=== PATIENT | female | born 1955 | race Caucasian/White ===

== ENCOUNTER 2023-07-28 12:41 | Outpatient (OUT) | payer MEDICARE, MEDICAID, SELFPAY ==
--- NOTE | 2023-07-28 12:48 | CT_ITS ---
[address] [address] Patient Name: SOLEDAD ORELLANA MRN: [id number] date: 1955 Sex: F Assigned Patient Location: CT Current Patient Location: Accession/Order Number: [id number] Exam Date: 07/28/2023 13:12 Report Date: 07/29/2023 09:39 At the request of: JOCELYNN ROSE Procedure: CT lung screening low-dose EXAMINATION: CT lung screening low-dose HISTORY: History Of Tobacco Dependence Z87.891 COMPARISON: 07/01/2022 TECHNIQUE: Axial, Coronal, and Sagittal images were created without the administration of IV contrast material. Dose reduction techniques were achieved by using automated exposure control and/or adjustment of mA and/or kV according to patient size and/or use of iterative reconstruction technique. FINDINGS: LUNGS: Increased linear opacities in both lung bases likely representing atelectasis or scar. Few scattered punctate ill-defined pulmonary opacities/nodules stable from the prior exam. No new suspicious pulmonary nodule or mass PLEURA: No mass, effusion, or pneumothorax. VASCULATURE: No abnormality. ROBERT: No mass or pathologic adenopathy. MEDIASTINUM: No mass or pathologic adenopathy. CARDIAC: No enlargement or pericardial effusion. Moderate coronary atherosclerosis ossification along the posterior left ventricle suggests remote injury AORTA: No aortic aneurysm. Atherosclerosis. CHEST WALL: No mass or axillary adenopathy BONES: No bone lesion or fracture. LIMITED ABDOMEN: Hiatal hernia with multiple suture lines along the stomach. Anterior fascial clips. Left adrenal hypodense mass OTHER: Negative. CT/CT lung screening low-dose IMPRESSION: LUNG SCREENING: Lung-RADS Category 2- Benign Appearance or Behavior. Nodules with a very low likelihood of becoming a clinically active cancer due to size or lack of growth. 2. Continue annual screening with LDCT in 12 months. Electronically authenticated by: BANDAR BOATENG Date: 07/29/2023 09:39
== END 2023-07-28 12:42 | disposition home or self-care (01) ==
LOC: CT 12:41
PROVIDERS: PCP Family Medicine; Visit Provider Internal Medicine
DX: Z87.891 Personal history of nicotine dependence (principal)
CPT/HCPCS: 71271

== ENCOUNTER 2024-09-26 11:39 | Outpatient (OUT) | payer MEDICARE, MEDICAID, SELFPAY ==
[2024-09-26 12:37] LABS: Anion Gap 16.3; BUN Creatinine Ratio 28.2; Calcium 8.8 mg/dL (8.5-10.1); Carbon Dioxide 27.6 mmol/L (21.0-32.0); Chloride 101 mmol/L (98-107); Estimated GFR (African America 29 (>=60 mL/min/1.73m^2); Estimated GFR (Non-African Ame 24 (>=60 mL/min/1.73m^2); Glucose 113 mg/dL (74-106); Potassium 3.9 mmol/L (3.5-5.1); Sodium 141 mmol/L (136-145)
== END 2024-09-26 11:40 | disposition home or self-care (01) ==
PROVIDERS: PCP Family Medicine; Visit Provider Family Medicine
DX: I50.9 Heart failure, unspecified (principal); E87.6 Hypokalemia
CPT/HCPCS: 36415; 80048; 83880

== ENCOUNTER 2025-04-22 12:13 | Outpatient (OUT) | payer MEDICARE, SELFPAY ==
--- OUTSIDE RECORDS SUMMARY | 2025-02-27 10:31 | XMS_ITS ---
Author Organization [facility] in [place] Address [address] [place] [address] Care Team Providers Care Publication Distributor Name Role Phone Jona Parker DO Primary Care Provider Unavailab debo Migue Rizzo Unavailable [phone] REASON FOR VISIT Trelegy 200 Medications Medication SIG (Take, Route, Frequency, Duration) Notes Start Date End Date Status Trelegy Ellipta 200-62.5-25 MCG/ACT 1 puff Inhalation QD for 90 days Rinse after use 12/31/2024 Active Encounters Encounter Location Date Provider Diagnosis Pulmonary Medicine [place] [address] [place] [address] 02/27/2025 Migue Kentrell Moderate persistent asthma, uncomplicated J45.40 Assessments Encounter Date Diagnosis (ICD Code) Assessment Notes Treatment Notes Treatment Clinical Notes Section Notes 02/27/2025 Moderate persistent asthma, uncomplicated (ICD-10 - J45.40) Plan Of Treatment Medication Medication Name Sig Start Date Stop Date Notes Trelegy Ellipta 200-62.5-25 MCG/ACT 1 puff Inhalation QD for 90 days 12/31/2024 Next Appt Details Provider Name:Migue Rizzo, 04/29/2025 11:00:00 AM, [address] [place], [address], Progress Notes * Anila ORELLANA ADOB:1955 (69 yo F)Acc No.[id number]:02/27/2025 Patient: Ya Anila GUTHRIE :1955 A ge:69 Y S ex:Female Address:[address] [place], [address] * Refills Refill Trelegy Ellipta Aerosol Powder Breath Activated, 200-62.5-25 MCG/ACT, Inhalation, 3 each, 1 puff, QD, 90 days, Refills=4 Subjective: * Chief Complaints: * T relegy 200 * Medical History: * Surgical History: * Hospitalization/Major Diagno stic Procedure: * Medications: Objective: * Vitals: * Physical Examination: Assessment: * Assessment: 1. M oderate persistent asthma, uncomplicated - J45.40 (Primary) Plan: * Treatment: * Procedure Codes: * true * Date: Generated for Chloé berman/Patricio/eTransmitting on: 0 04/22/2025 12:15 PM EDT
--- OUTSIDE RECORDS SUMMARY | 2025-03-24 09:46 | XMS_ITS ---
Author Organization [facility] [place] in [place] Address [address] [place] [address] Care Team Providers Care Toy Packer Name Role Phone Jona Parker DO Primary Care Provider Unavailab Migue De Unavailable [phone] REASON FOR VISIT PFT/LDCT Encounters Encounter Location Date Provider Diagnosis Pulmonary Medicine [place] [address] [place] [address] 03/24/2025 Migue Rizzo Plan Of Treatment Next Appt Details Provider Name:Migue Rizzo, 04/29/2025 11:00:00 AM, [address] [place], [address], Progress Notes * Anila ORELLANA ADOB:1955 (69 yo F)Acc No.[id number]:03/24/2025 Patient: Ya GUTHRIE Anila Suero :1955 A ge:69 Y S ex:Female Address:[facility] [place], [address] * true * Date: Generated for Printi ng/Fachrissyg/eTransmitting on: 0 04/22/2025 12:16 PM EDT
--- OUTSIDE RECORDS SUMMARY | 2025-04-02 06:00 | XMS_ITS ---
Author Organization [facility] in [place] Address [address] [place] [address] Care Team Providers Care Collaborative Physician Name Role Phone Jona Parker DO Primary Care Provider UnavailMigue Zabala Unavailable [phone] Allergies Allergen (clinical drug ingredient) Drug/Non Drug Allergy documented on EMR Reaction Allergy Type Onset Date Status Non-steroidal anti-inflammatory agent (FN) NSAIDs renal failure Drug Allergy Active REASON FOR VISIT 6w F/U - Asthma Medications Medication SIG (Take, Route, Frequency, Duration) Notes Start Date End Date Status Levalbuterol Tartrate 45 MCG/ACT Inhalation for 16 Days Activ e Lisinopril 20 MG 1 tablet Orally Once a day Active Trelegy Ellipta 200-62.5-25 MCG/ACT 1 puff Inhalation QD for 90 days Rinse after use Active Acetaminophen-Codeine 300-30 MG Oral for 7 Days Not-Taking Combivent Respimat 20-100 MCG/ACT Inhalation for 30 Days Activ e Lasix 20 MG 1 tablet Orally Once a day Active Social History Tobacco Use: Social History Observation Description Date Details (start date - stop date) Former Smoker NA - NA Tobacco Control (Standard) Question Answer Notes Tobacco use: Former smoker How long has it been since you last smoked? 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 (Z79.51) Active confirmed Problem Respiratory tract infection (844226578) Recurrent respiratory infection (J98.8) Active confirmed Vital Signs Weight 216.2 lbs 04/02/2025 Height 60 in 04/02/2025 Blood pressure systolic 166 mm Hg 04/02/20 25 Blood pressure diastolic 97 mm Hg 025 Temperature 96.8 degrees Fahrenheit 04/02/20 25 Heart Rate 99 /min 04/02/2025 Respiratory Rate 18 /min 04/02/2025 BMI 42.22 kg/m2 04/02/2025 Oximetry 95 % 04/02/2025 RA Activity/Resting Encounters Encounter Location Date Provider Diagnosis Pulmonary Medicine [place] [address] [place] [address] 04/02/2025 Migue Rizzo Moderate persistent asthma, uncomplicated J45.40 ; Recurrent respiratory infection J98.8 ; Chronic respiratory failure with hypoxia J96.11 ; Multiple pulmonary nodules R91.8 ; TORSTEN (obstructive sleep apnea) G47.33 ; History of tobacco abuse Z87.891 and 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 Patient unable to get PFT done d/t illness and prednisone use. She just stopped prednisone late last week. Breath sounds are coarse with expiratory wheezes despite recent prednisone use and daily Trelegy 200. Patient was instructed to schedule the PFT in 2-3 weeks. Additionally, with recurrent exacerbations and presumptive pneumonia, she needs further w/up. Ordering labs for asthma mimics (ABPA, ANCA) and difficult to treat asthma (IgE, eosinophils) - prior eosinophils were not extremely elevated and may be depressed by steroids. She also needs w/up for possible immunodeficiency. F/U 4 weeks to (hopefully) review testing. May require biologic therapy (? Dupixent if prednisone-depende nt) 04/02/2025 Recurrent respiratory infection (ICD-10 - J98.8) 2 episodes of pneumonia since end of December, confirmed via CXR per patient (though I don't have those records). Ordering testing to evaluate further (e.g. immunoglobulins, complement alt. tank, S. pneumo Ab). AAT screening was previously done - she has normal genotype MM. 04/02/2025 Chronic respiratory failure with hypoxia (ICD-10 - J96.11) SpO2 remains low on arrival @ 87% on room air. Patient was told to use O2 with ambulation last visit - she still qualifies for supplemental O2 now. She was instructed to be compliant with O2 with activity. 04/02/2025 Multiple pulmonary nodules (ICD-10 - R91.8) History of pulmonary nodules. Last LDCT 07/28/2023 - no change from 07/01/2022. She needs LDCT done, but waiting until she recovers from presumptive pneumonia - LDCT possibly later in March. 04/02/2025 TORSTEN (obstructive sleep apnea) (ICD-10 - G47.33) Patient has mild TORSTEN based on PSG 03/31/2021 with AHI of 6. Does not want to use PAP therapy. 04/02/2025 History of tobacco abuse (ICD-10 - Z87.891) 1/2ppd x 48 years, quit 04/2022. Patient has not restarted smoking. She was congratulated on her success. LDCT was due 07/2024; patient voiced agreement to restart the LDCT screening program. 04/02/2025 [facility] (current) use of inhaled steroids (ICD-10 - Z79.51) Patient was counseled to rinse & gargle with water after inhaled corticosteroid use. Plan Of Treatment Medication Medication Name Sig Start Date Stop Date Notes Trelegy Ellipta 200-62.5-25 MCG/ACT 1 puff Inhalation QD for 90 days Treatment Notes Assessment Notes Moderate persistent asthma, uncomplicate d Change from Breo to Trelegy 200 has improved symptom control, yet she has had 2 exacerbations since December - though she states attributed to pneumonia , regardless, pneumonia contributed to the asthma exacerbation. Patient unable to get PFT done d/t illness and prednisone use. She just stopped prednisone late last week. Breath sounds are coarse with expiratory wheezes despite recent prednisone use and daily Trelegy 200. Patient was instructed to schedule the PFT in 2-3 weeks. Additionally, with recurrent exacerbations and presumptive pneumonia, she needs further w/up. Ordering labs for asthma mimics (ABPA, ANCA) and difficult to treat asthma (IgE, eosinophils) - prior eosinophils were not extremely elevated and may be depressed by steroids. She also needs w/up for possible immunodeficiency. F/U 4 weeks to (hopefully) review testing. May require biologic therapy (? Dupixent if prednisone-dependent) Recurrent respiratory infection 2 episodes of pneumonia since end december, confirmed via CXR per patient (though I don't have those records). Ordering testing to evaluate further (e.g. immunoglobulins, complement alt. pathyway, S. pneumo Ab). AAT screening was previously done - she has normal genotype MM. Chronic respiratory failure with hypoxia SpO2 remains low on arrival @ 87% on room air. Patient was told to use O2 with ambulation last visit - she still qualifies for supplemental O2 now. She was instructed to be compliant with O2 with activity. Multiple pulmonary nodules History of pulmonary nodules. Last LDCT 07/28/2023 - no change from 07/01/2022. She needs LDCT done, but waiting until she recovers from presumptive pneumonia - LDCT possibly later in March. TORSTEN (obstructive sleep apnea) Patient has mild TORSTEN based on PSG 03/31/2021 with AHI of 6. Does not want to use PAP therapy. History of tobacco abuse 1/2ppd x 48 years, quit 04/2022. Patient has not restarted smoking. She was congratulated on her success. LDCT was due 07/2024; patient voiced agreement to restart the LDCT screening program. [facility] (current) use of i nhaled steroids Patient was counseled to rinse & gargle with water after inhaled corticosteroid use. Pending Test Test Name Order Date ANCA (ANTINEUTROPHIL CYTOPLASMIC AB SCRE EN) 04/02/2025 ASPERGILLUS ABS (FLAVUS,FUMIGATUS, NIGER ) QUAL 04/02/2025 IGA, IMMUNOGLOBULIN (TOTAL) 04/02/2025 IGE, IMMUNOGLOBULIN (TOTAL) 04/02/2025 IGG, IMMUNOGLOBULIN (TOTAL) 04/02/2025 IGG SUBCLASSES (1,2,3 and 4) 04/02/2025 IGM, IMMUNOGLOBULIN (TOTAL) 04/02/2025 COMPLEMENT, ALT PATH, FUNCTION CBC W/AUTO DIFF 04/02/2025 STREP PNEUMONIAE ANTIBODY SEROTYPES 05/0 05/2025 Next Appt Details Follow Up: 4 Weeks, Reason: Asthma - PFT, LDCT, Labs Provider Name:Migue Rizzo, 04/29/2025 11:00:00 AM, [address] [place], [address], Procedure Notes * Category Sub-Category Detail Notes PFT Data: PFT 07/01/2022 - T BH-FEV1/FVC: 69%-FEV1: 56%-FVC: 62%-XTQ72-37%: 39%-Bronchodilator response: Positive-RV: 134%-T%-DLCO: 94%-Flow-volume loop: Moderate obstruction Alpha-1 Antitrypsin Screening Date: 06/14/2021 Genotype: M/M Progress Notes * Anila ORELLANA ADOB:1955 (69 yo F)Acc No.[id number]:04/02/2025 Follow Up Patient: Anila RM Provider: Pao Rizzo DO :1955 A ge:69 Y S ex:Female Date:04/02/2025 Address:[address] [place], [place] [address] Pcp:Jona Parker, DO Check In:09:54 AM ESTCheck O ut:10:21 AM EST Subjective: * Chief Complaints: * 6 w F/U - Asthma * HPI: G eneral: Patient was last seen 01/20/2025. Breo was changed to Trelegy at that time, and PFT & LDCT were ordered. She states the change from Breo to Trelegy has been effective with more relief of dyspnea and coughing. However, she had to cancel the testing twice d/t 2 episodes of pneumonia - I asked if they were diagnosed clinically, but she stated both times they were confirmed by CXR - this office was never sent a copy of the UC visits nor CXR studies. She completed her antibiotics and prednisone from her second bout late last week.? Today, she states she is feeling okay. Continues to use Trelegy 200 with benefit, not using rescue inhaler often. A sked her about the pneumonias - she states she has pneumonia at least once a year around this time. Never had immunology w/up. Denies regurgitation, choking, or aspiration. MA Intake Comments:. Patient presents for a follow up for Asthma. Patient wears 2L O2 at HS. DME:[employer]. Patient was scheduled twice for her PFT & LDCT due to having Bronchitis and being on ABX/Steroids. Patient states she is not currently on ABX or Steroids. Patient denies any Pulmonary complaints today. Patient is scheduled to see [facility] but is unsure of her appointment date and time. Patient denies any hospitalizations or ER visits since her last visit. * ROS: G eneral/Constitutional: Fever or sweats d enies. C hange of appetite d enies. C hills d enies. W eight Change d enies. H EENT: Dry mouth d enies. S ore throat d enies. O ral Ulcers d enies. P ost Nasal Drip D enies. C ongestion D enies. H oarseness?Denies. C ardiovascular: Tachycardia d enies. E sarah D enies. C hest pain d enies. P alpitations d enies. R espiratory: Pleurisy D enies. D yspnea w ith exertion. C ough d enies. H emoptysis d enies. W heezing d enies. G astrointestinal: Acid Reflux/GERD/Heartburn d enies. A spiration D enies. D ysphagia d enies. M usculoskeletal: Arthralgias/joint pain D enies. S kin: Easy bruising d enies. N eurologic: Seizures d enies. T remor d enies. H ematology: Abnormal Bleeding d enies. P sychiatric: Anxiety d enies. 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 * Social History: T obacco Use: T obacco Control (Standard) T obacco use: F ormer smoker H ow long has it been since you last smoked??1-5 years A dditional Findings: Tobacco non-user E x-light cigarette smoker (1-9/day) LM: Additional Tobacco Questions N umber of Years Pt Smoked: 4 8 N umber of Packs per Day: . 5 When did you stop smokin04/2022. M iscellaneous: O ccupation O ccupation: W orks at home Homemaker Pets: cats. D rugs/Alcohol: D rugs H ave you used drugs other than those for medical reasons in the past 12 months? N o D oes the Patient have a History of Drug Abuse in the Past? N o Caffeine I ntake: n one Do you drink alcohol?: No. Do you smoke marijuana?: Denies. * Medications: T akingCombivent Respimat(Ipratropium-Albuterol) 20-100 MCG/ACT Aerosol Solution Inhalation Lasix(Furosemide) 20 MG Tablet 1 tablet Orally Once a day Levalbuterol Tartrate 45 MCG/ACT Aerosol Inhalation Lisinopril 20 MG Tablet 1 tablet Orally Once a day Trelegy Ellipta(Jssqijnzupl-Hilrghdqo-Vlikdh) 200-62.5-25 MCG/ACT Aerosol Powder Breath Activated 1 puff Inhalation QD Rinse after useTaking Combivent Respimat(Ipratropium-Albuterol) 20-100 MCG/ACT Aerosol Solution Inhalation Taking Lasix(Furosemide) 20 MG Tablet 1 tablet Orally Once a day Taking Levalbuterol Tartrate 45 MCG/ACT Aerosol Inhalation Taking Lisinopril 20 MG Tablet 1 tablet Orally Once a day Taking Trelegy Ellipta(Mmlzvkyzpnu-Upheqzfrf-Unbqzn) 200-62.5-25 MCG/ACT Aerosol Powder Breath Activated 1 puff Inhalation QD Rinse after useNot-Taking/PRNAcetaminophen-Codeine 300-30 MG Tablet Oral Medication List reviewed and reconciled with the patientNot-Taking/PRN Acetaminophen-Codeine 300-30 MG Tablet Oral Medication List reviewed and reconciled with the patient * Allergies: N SAIDs: renal failure - Allergyno[Allergies Verified] Objective: * Vitals: W t:216.2lbs, Ht: 60 in, BP:sittin/97mm Hg, Temp:Forehead:96.8F, HR: 101 /min,99/min, RR:18/min, BMI:42.22Index, Oxygen sat %: Room Air:87 %,Room Air:95%, Ht-cm: 152.4 cm, Wt-k.07 kg. RA Activity/Resting. * Examination: E xam: GENERAL APPEARANCE: D oes not appear acutely ill. Skin N ormal. Mouth P ink and moist. No candidiasis. Oropharynx M allampati Class III. Trachea M idline. Chest N ormal. Respiratory Normal M ovements, E ffort N ormal. Auscultation B reath sounds are coarse with expiratory wheezes. Cardiac R egular rate & rhythm. Gastrointestinal N ormal. Vascular N o edema. Musculoskeletal N ormal posture. Neurological F ocal, intact. Psychiatric A lert and oriented x3. Mentation/Cognition N ormal. Assessment: * Assessment: 1. M oderate persistent asthma, uncomplicated - J45.40 (Primary) 2 . R ecurrent respiratory infection - J98.8 3 . C hronic respiratory failure with hypoxia - J96.11 4 . M ultiple pulmonary nodules - R91.8 5 . O SA (obstructive sleep apnea) - G47.33 6 . H istory of tobacco abuse - Z87.891 ? 7 . L ronaldo term (current) use of inhaled steroids - Z79.51 Plan: * Treatment: 2. R ecurrent respiratory infection L AB: IGA, IMMUNOGLOBULIN (TOTAL) L AB: IGE, IMMUNOGLOBULIN (TOTAL) L AB: IGG, IMMUNOGLOBULIN (TOTAL) L AB: IGG SUBCLASSES (1,2,3 and 4) L AB: IGM, IMMUNOGLOBULIN (TOTAL) L AB: COMPLEMENT, ALT PATH, FUNCTION L AB: CBC W/AUTO DIFF L AB: STREP PNEUMONIAE ANTIBODY SEROTYPES Notes: 2 episodes of pneumonia since end of December, confirmed via CXR per patient (though I don't have those records). Ordering testing to evaluate further (e.g. immunoglobulins, complement alt. pathyway, S. pneumo Ab). AAT screening was previously done - she has normal genotype MM. 3. C hronic respiratory failure with hypoxia Notes: SpO2 remains low on arrival @ 87% on room air. Patient was told to use O2 with ambulation last visit - she still qualifies for supplemental O2 now. She was instructed to be compliant with O2 with activity. 4. M ultiple pulmonary nodules Notes: History of pulmonary nodules. Last LDCT 07/28/2023 - no change from 07/01/2022. She needs LDCT done, but waiting until she recovers from presumptive pneumonia - LDCT possibly later in March. 5. O SA (obstructive sleep apnea) Notes: Patient has mild TORSTEN based on PSG 03/31/2021 with AHI of 6. Does not want to use PAP therapy. ? 6. H istory of tobacco abuse Notes: 1/2ppd x 48 years, quit 04/2022. Patient has not restarted smoking. She was congratulated on her success. LDCT was due 07/2024; patient voiced agreement to restart the LDCT screening program. 7. L ronaldo term (current) use of inhaled steroids Notes: Patient was counseled to rinse & gargle with water after inhaled corticosteroid use. * Procedures: A lpha-1 Antitrypsin: Screening Date: 0 06/14/2021. Genotype: M /M. P FT: Data: PFT 07/01/2022 - [facility] -FEV1/FVC: 69% -FEV1: 56% -FVC: 62% -LZU90-33%: 39% -Bronchodilator response: Positive -RV: 134% -T% -DLCO: 94% -Flow-volume loop: Moderate obstruction. * Procedure Codes: * Preventive Medicine: COVID Vaccination: H as patient had COVID Vaccination? COVID Vaccination Y es 09/10/2021 Immunization Status: P neumovacc p neumovacc 23-08/27/2018. I nfluenza 0 08/13/2024. Screenings/Counseling: F ALL RISK SCREENING Fall Risk Assessment: N o falls in the past year Are you afraid of falling? N o T OBACCO ACTION PLAN Patient counselled on the dangers of tobacco use and urged to quit. 0 04/02/2025 Former Cessation counseling provided 0 04/02/2025 Former B VT ACTION PLAN Above Normal BMI Follow-up D ietary management education, guidance, and counseling * Follow Up: 4 Weeks (Reason: Asthma - PFT, LDCT, Labs) * * Sign off status: Completed Visit Status: C HK (Check Out) true * Provider: Pao Rizzo DO Date: 0 04/02/2025 Generated for Chloé berman/Patricio/Jonoitting on: 0 04/22/2025 12:16 PM EDT History and Physical Notes * HPI (History of Present Illness) Category Sub-Category Detail Notes Category Not es General Patient present s for a follow up for Asthma. Patient wears 2L O2 at HS. DME:Brian. Patient was scheduled twice for her PFT & LDCT due to having Bronchitis and being on ABX/Steroids. Patient states she is not currently on ABX or Steroids. Patient denies any Pulmonary complaints today. Patient is scheduled to see [facility] but is unsure of her appointment date and time. Patient denies any hospitalizations or ER visits since her last visit. Examination Category Sub-Category Detail Notes Category Not es Exam GENERAL APPEARANCE: Does not appear acute ly ill Skin Normal Mouth [place] and moist. No c andidiasis Trachea Midline Chest Normal Respiratory Normal Movements, Ef fort Normal Auscultation Breath sounds are co arse with expiratory wheezes Cardiac Regular rate & rhyth m Gastrointestinal Normal Vascular No edema Musculoskeletal Normal posture Neurological Focal, intact Psychiatric Alert and oriented x 3 Mentation/Cognition Normal Oropharynx Mallampati Class III
--- OUTSIDE RECORDS SUMMARY | 2025-04-17 23:02 | XMS_ITS | Continuity of Care Document ---
Author Organization [facility] Address [address] [place] [address] Phone Care Team Providers Care Commercial Litigation Associate Name Role Phone Jona Parker DO Primary Care Provider Marcus Marquez MD Attending Provider Care Teams Patient Care Team Team Status: Active Member Role Status Nabila Parker DO Primary Care Provider Active Visit Care Team Team Status: Inactive Member Role Status Nabila Parker DO Primary Care Provider Active S tart: April 11, 2025 End: April 11, 2025 Marcus Marquez MD Attending Provider Activ e Start: April 11, 2025 End: April 11, 2025 Visit Care Team Team Status: Inactive Member Role Status Nabila Parker DO Primary Care Provider Active S tart: April 11, 2025 End: April 11, 2025 Marcus Marquez MD Attending Provider Activ e Start: April 11, 2025 End: April 11, 2025 Chief Complaint and Reason for Visit Reason for Visit Admit Date Diastolic dysfunction April 11, 2025 10: 16am Essential (primary) hypertension March 10:16am Hypertensive heart disease May 16th, 202 5 10:16am RVF (right ventricular failure) March 10:16am Allergies, Adverse Reactions, Alerts Allergen Type Severity Reaction Last Updated Verified Status ibuprofen Allergy Unknown Unknown Reaction March 10:25am Yes Active ketorolac Allergy Unknown Gastrointestinal Upset Ma y 2024 10:25am Yes Active nalbuphine Allergy Unknown Unknown Reaction March 10:25am Yes Active NSAIDS (Non-Steroidal Anti-Inflamma Allergy Unknown Gastrointestinal Upset April 11, 2025 10:25am Yes Active venlafaxine Allergy Unknown Rash April 11, 2025 10:25am Yes Active Social History Smoking Status Status Start Date End Date Date of Observa tion Ex-smoker (finding) March 11:23am Observation Status Observation Response Date of Response Patient Sex Female April 12, 2025 1 2:03am Assigned Sex Female 1955 Family History Relationship Condition Age at Onset Recorded Date/T beau father Unknown mother Unknown Problems Active Problems Medical Problem Onset Date Status correction (current) use of bisphosphonates Active Graves disease Active Vitamin B12 deficiency Active Depression Active Hyperlipidemia Active Diastolic dysfunction Active Essential (primary) hypertension Active Iron deficiency anemia Active Chronic neck pain Active COPD (chronic obstructive pulmonary disease) Active Cervical pain Active Hypertensive heart disease Activ e Medications Medication Status Dose Units Route Directions Qty Days St art Date Stop Date End Date Instructions Tizanidine 4 mg tablet Discont inued 4 MG PO Every 8 hours as needed for muscle spasm February 26, 2024 2:00pm February 26, 2024 2:03p m Tizanidine 4 mg tablet Discont inued 4 MG PO Every 8 hours as needed for muscle spasm February 26, 2024 2:01pm May 21, 2024 12:55 pm Lisinopril-H ydrochloroth iazide 20-25 mg tablet Discont inued 0 .ROUTE .COMPLEX March 04, 2024 1:56pm May 21, 2024 12:55 pm take 1 tablet by mouth once daily Sertraline 50 mg tablet Discont inued 0 .ROUTE .COMPLEX March 04, 2024 1:58pm June 06, 2024 10:38 am take 1 tablet by mouth once daily Potassium Chloride 10 mEq tablet,ER particles/cr ystals Discont inued 0 .ROUTE .COMPLEX March 11, 2024 10:01a m June 10, 2024 5:02p m take 1 tablet by mouth once daily with food Lisinopril-H ydrochloroth iazide 20-25 mg tablet Discont inued 0 .ROUTE .COMPLEX May 21, 2024 12:55p m Novem hedy 2023 9:13a m take 1 tablet by mouth once daily Tizanidine 4 mg tablet Discont inued 4 MG PO Every 8 hours as needed for muscle spasm May 21, 2024 12:55p m Septe mber 2023 2:50p m Sertraline 50 mg tablet Discont inued 0 .ROUTE .COMPLEX June 06, 2024 10:38a m Augus t 2023 10:19 am take 1 tablet by mouth once daily Potassium Chloride 10 mEq tablet,ER particles/cr ystals Discont inued 0 .ROUTE .COMPLEX June 10, 2024 5:01pm Octob er 2023 11:42 am take 1 tablet by mouth once daily with food Atenolol 50 mg tablet Discont inued 0 .ROUTE .COMPLEX June 10, 2024 5:02pm Septe mber 2023 2:30p m take 1 tablet by mouth once daily Sertraline 50 mg tablet Discont inued 0 .ROUTE .COMPLEX July 08, 2024 10:19a m Octob er 2023 10:32 am take 1 tablet by mouth once daily Tizanidine 4 mg tablet Discont inued 4 MG PO Every 8 hours as needed for muscle spasm Julem hedy 2023 2:50pm Octob er 2023 11:42 am Lisinopril 20 mg tablet Discont inued 20 MG PO Daily 30 Novemb er 2023 12:00a m Novem hedy 2023 10:48 am Lisinopril 20 mg tablet Discont inued 20 MG PO Daily 30 Novemb er 2023 10:48a m Novem hedy 2023 10:41 am Tizanidine 4 mg tablet Discont inued 4 MG PO Every 8 hours as needed for muscle spasm 60 Novemb er 2023 2:38pm Novem hedy 2023 2:38p m Tizanidine 4 mg tablet Discont inued 4 MG PO Every 8 hours as needed for muscle spasm 60 Novemb er 2023 2:38pm Decem hedy 2023 1:32p m Lisinopril 20 mg tablet Discont inued 0 .ROUTE .COMPLEX 30 Novemb er 2023 10:40a m Decem hedy 2023 10:10 am TAKE 1 TABLET BY MOUTH DAILY Tizanidine 4 mg tablet Discont inued 4 MG PO Every 8 hours as needed for muscle spasm 60 Decemb er 2023 1:32pm Janua ry 2024 10:50 am Lisinopril 20 mg tablet Discont inued 0 .ROUTE .COMPLEX 30 Decemb er 2023 10:10a m February 10, 2025 11:33 am TAKE 1 TABLET BY MOUTH DAILY Furosemide (Lasix) 20 mg tablet Discont inued 20 MG PO Daily 2024 10:50a m February 10, 2025 11:33 am Tizanidine 4 mg tablet Discont inued 4 MG PO Every 8 hours as needed for muscle spasm 60 y 2024 10:50a m Febru aicha 2024 3:38p m Tizanidine 4 mg tablet Discont inued 4 MG PO Every 8 hours as needed for muscle spasm 60 Februa ry 2024 3:38pm February 10, 2025 11:33 am Furosemide (Lasix) 20 mg tablet Discont inued 20 MG PO Daily February 10, 2025 11:32a m February 20, 2025 9:40a m Lisinopril 20 mg tablet Active 0 .ROUTE .COMPLEX February 10, 2025 11:32a m TAKE 1 TABLET BY MOUTH DAILY Tizanidine 4 mg tablet Discont inued 4 MG PO Every 8 hours as needed for muscle spasm 60 February 10, 2025 11:32a m March 31, 2025 4:05p m Furosemide 20 mg tablet Discont inued 0 .ROUTE .COMPLEX February 20, 2025 9:40am April 04, 2025 8:21a m TAKE 1 TABLET BY MOUTH DAILY Tizanidine 4 mg tablet Discont inued 4 MG PO Every 8 hours as needed for muscle spasm 60 March 31, 2025 4:04pm April 11, 2025 10:27 am Furosemide 20 mg tablet Active 20 MG PO Twice daily 60 30 April 04, 2025 8:21am Doxycycline Hyclate 100 mg capsule Discont inued 100 MG PO Twice daily April 02, 2018 12:00a m May 04, 2018 11:53 am Cephalexin 500 mg capsule Discont inued 500 MG PO Twice daily April 02, 2018 12:00a m May 04, 2018 11:52 am Oxycodone-Ac etaminophen (Percocet) 5-325 mg tablet Discont inued 1 TAB PO EVERY 4-6 HOURS as needed for pain April 02, 2018 May 04, 2018 11:53 am Azithromycin (Zithromax Z-Chalino) 250 mg tablet Discont inued 1 dose pk PO as directed on dose pack June 02, 2018 12:00a m [facility] 2017 3:16p m take 2 tablets (500 mg) today (day 1), then 1 tablet (250 mg) for 4 days (days 2-5) Oxycodone-Ac etaminophen (Percocet) 5-325 mg tablet Discont inued 1 TAB PO EVERY 4-6 HOURS as needed for pain June 02, 2018 t 2017 3:16p m Benzonatate (Tessalon Perles) 100 mg capsule Discont inued 200 MG PO Three times daily as needed for cough June 02, 2018 12:00a [facility] 3:16[facility] Prednisone 50 mg tablet Discont inued 50 MG PO Daily 4 June 02, 2018 12:00a m Jun 2017 3:16p m administer with food or milk Bupropion Hcl (Wellbutrin Xl) 300 mg Tablet Extended Release 24 Hr Discont inued 300 MG PO daily June 29, 2018 12:00a m [facility] 2023 1:53p m Prednisone 5 mg tablets,dose pack Discont inued 1 dose pk PO per package directions June 29, 2018 12:00a m [facility] 2023 1:54p m Tizanidine 4 mg tablet Discont inued 4 MG PO Four times daily as needed for Cramps Jul 2016 12:00a m February 26, 2024 2:00p m Sucralfate 1 gram tablet Discont inued TABLET 2016 12:00a m [facility] 2016 7:26p m Oxycodone-Ac etaminophen 5-325 mg tablet Discont inued TABLET 2016 12:00a m [facility] 2016 7:27p m Pantoprazole 40 mg tablet,delay ed release (DR/EC) Discont inued 40 MG PO Daily 2016 12:00a m February 02, 2018 5:42p m Lisinopril-H ydrochloroth iazide 20-25 mg tablet Discont inued 1 TAB PO Daily 2016 12:00a m March 04, 2024 1:57p m Ondansetron 4 mg tablet,disin tegrating Discont inued 4 MG TRANSL INGU Q8H as needed for Nausea 2016 12:00a m March 09, 2018 5:02p m Atenolol 50 mg tablet Discont inued 50 MG PO Daily 2016 12:00a m [facility] 2023 1:53p m Sucralfate (Carafate) 1 gram tablet Discont inued 1 GM PO Q6H 112 28 Jul 2016 12:00a m Octob er 2016 12:00 am Octob er 2016 12:03 am Sucralfate (Carafate) 1 gram Tablet Discont inued 1 GM PO Four times daily Octobe r 2016 12:00a m [facility] 2023 1:55p m Sertraline 50 mg tablet Discont inued 50 MG PO Daily February 02, 2018 1:00am March 09, 2018 5:02p m Hydrocodone- Acetaminophe n (Falun) 5-325 mg Tablet Discont inued 1 TAB PO EVERY 4-6 HOURS as needed for Pain 7 February 02, 2018 March 09, 2018 5:02p m Butalbital-A cetaminophen -Caff 50-325-40 mg tablet Discont inued 1 TAB PO Twice daily as needed for Pain March 09, 2018 12:00a m June 02, 2018 6:16p m Levofloxacin 500 mg tablet Discont inued 500 MG PO Daily March 09, 2018 12:00a m April 02, 2018 11:26 am Albuterol Sulfate (Ventolin Hfa) 90 mcg/actuatio n HFA aerosol inhaler Discont inued 1 PUFF INHALA TION Q4H as needed for Wheezing March 09, 2018 12:00a m April 02, 2018 11:26 am Hydrocodone- Acetaminophe n (Falun) 5-325 mg tablet Discont inued 1 - 2 TAB PO EVERY 4-6 HOURS as needed for pain March 09, 2018 April 02, 2018 11:26 am Pantoprazole 40 mg tablet,delay ed release (DR/EC) Discont inued 40 MG PO Twice daily May 04, 2018 12:00a m [facility] 2023 1:54p m Oxycodone-Ac etaminophen (Percocet) 5-325 mg tablet Discont inued 1 TAB PO Q6H as needed for pain 6 2 May 04, 2018 May 05, 2018 12:00 am May 06, 2018 12:02 am Oxycodone-Ac etaminophen 5-325 mg tablet Discont inued 1 TAB PO EVERY 4-6 HOURS as needed for pain 6 May 14, 2018 June 02, 2018 6:16p m Alendronate (Fosamax) 70 mg Tablet Discont inued 1 TAB PO EVERY 2 WEEKS Augobe r 2018 12:00a m June 10, 2024 5:03p m Orphenadrine Citrate 100 mg Tablet Extended Release Discont inued 1 TAB PO Q12H as needed for Pain Octobe r 2018 12:00a m [facility] 2023 1:54p m Methimazole (Tapazole) 5 mg Tablet Discont inued 1 TAB PO Daily Octobe r 2018 12:00a m [facility] 1:54p m Methimazole (Tapazole) 5 mg Tablet Discont inued TABLET Octobe r 2018 12:00a m [facility] 10:21 am Vitamin F02-Gjska Acid 1,000-400 mcg Lozenge Active 1 TAB SUBLIN GUAL Daily Octobe r 2018 12:00a m Calcium Carbonate-Vi tamin D3 (Calcium 500 + D) 500 mg(1,250mg) -200 unit Tablet Discont inued 1 TAB PO Daily Dece er 2018 1:00am April 11, 2025 10:27 am Sertraline 50 mg tablet Discont inued 50 MG PO Daily March 04, 2024 12:00a m March 04, 2024 1:58p m Potassium Chloride 10 mEq tablet,ER particles/cr ystals Discont inued 0 PO Daily 180 Octobe r 2023 11:37a m Octob er 2023 11:02 am take 2 (10 MEQ) tablets orally daily with food Tizanidine 4 mg tablet Discont inued 4 MG PO Every 8 hours as needed for muscle spasm 60 Octobe r 2023 11:41a m Novem hedy 2023 2:38p m Furosemide (Lasix) 20 mg tablet Discont inued 20 MG PO Daily Octobe r 2023 12:00a m Janua ry 2024 10:50 am Ipratropium- Albuterol (Combivent Respimat) 20-100 mcg/actuatio n mist Active 1 PUFF INHALA TION Four times daily 4 Octobe r 2023 12:00a m Levalbuterol Tartrate 45 mcg/actuatio n HFA aerosol inhaler Active 1 PUFF INHALA TION Every 4 hours as needed for shortness of breath or wheezing 15 Octobe r 2023 12:00a m Potassium Chloride 10 mEq tablet,ER particles/cr ystals Discont inued 10 MEQ PO March 11, 2024 12:00a m March 11, 2024 10:01 am take 1 tablet by mouth once daily with food; Note: Source Status: Start; Refills: 3; Qty: 90 Tablet; Provider: Keith Tenorio ( ) Alendronate 70 mg tablet Discont inued 70 MG PO Sept hedy 2023 12:00a m April 11, 2025 10:27 am 1 tablet Orally once per week Atenolol 50 mg tablet Discont inued 50 MG PO Twice daily 180 90 2023 2:23pm Octob er 2023 11:00 am Carvedilol (Coreg) 6.25 mg tablet Active 6.25 MG PO Twice daily 60 30 April 11, 2025 12:00a m must administer with a meal/food Immunizations Immunization Event Date Not Given Reason Dose Number [facility] Lot Number Vaccine Information Statement (VIS) Detail COVID-19 mRNA-1273 (Moderna) February 02, 2021 COVID-19 mRNA-1273 (Moderna) March 02, 2021 COVID-19 mRNA-1273 (Moderna) September 20, 2021 Fluzone TIV High-Dose 65YR+ August 13, 2024 [id number] Pneumococcal Polysacc. Vaccine, 23 valent August 27, 2018 Quadrivalent Influenza August 11, 2017 Quadrivalent Influenza August 27, 2018 Vital Signs Vital Reading Result Reference Range Collection Date/Time Height 61.5 [in_i] April 11, 2025 10:37am Weight 95.70 kg April 11, 2025 10:37am Heart Rate 106 /min 60-100 April 11, 2025 10:37am Respiratory rate 18 /min 12-24 April 11, 2 025 10:37am BP Systolic 160 mm[Hg] 100-140 April 11, 2025 10:37am BP Diastolic 102 mm[Hg] 60-100 April 11, 2025 10:37am BMI (Body Mass Index) 39.2 kg/m2 April 112024 10:37am Advance Directives Advance Directive Response Recorded Date/ Time Advance Directives No April 11 11:23am Insurance Providers Guarantor Anila Walter Address [address] [address] Contact Info. Home Phone: Payer Policy Id Coverage Id Subscriber's Name Subscriber Id Effective Date Expiration Date Medicaid [id number] Anila Walter [id number] Medicare [id number] Anila Walter [id number] [employer] [place] [id number] Anila Walter [id number] Encounters Encounter Location(s) Arrival/Admit Date Discharge/Depart Date Provider(s) Departed Physician/Prov ider Office Visit [facility] Card[facility] April 11, 2025 10:16am April 11, 2025 11:25am Marcus Marquez MD Departed Clinical [facility] Cardiology April 11, 2025 10:22am April 11, 2025 10:23am Marcus Marquez MD Recent Diagnosis Onset Date Admit Date Diastolic dysfunction April 11, 2025 10:16am Essential (primary) hypertension April 11, 2025 10:16am Hypertensive heart disease March 272024 10:16am RVF (right ventricular failure) April 11, 2025 10:16am Assessments Diagnosis Onset Date Resolution Status Admit Date Diastolic dysfunction acute April 11, 2025 10:16am Essential (primary) hypertension acute April 11, 2025 1 0:16am Hypertensive heart disease acute April 11, 2025 10:16am RVF (right ventricular failure) noneactive April 11, 2025 1 0:16am Plan of Treatment Author Marcus Marquez [facility] Authored April 11, 2025 11:24 am # HTN with hypertensive heart disease - Was diagnosed at age 19. # Diastolic dysfunction - is due to hypertensive heart disease. No systlic dysfunction. NYHA 1. # RV dilation/dysfunction - see below. # Other: Asthma (follows with Dr. Rizzo), Obesity, TORSTEN (cannot tolerate CPAP mask), CLBP, HAFSA, HLD, Graves' disease, migraine, bipolar, depression. Echo 09/11/[address] [facility] EF 65-70%, moderate LVH, G2 DD, RV is moderately dilated with reduced function, flattened septum consistent with RV volume and pressure overload, trace MR. EKG 04/11/2025 sinus tachycardia, 108 bpm, right atrial enlargement, LPFB. - Reviewed blood work from [facility] on 12/09/2024 including CBC, CMP magnesium, troponin and BNP. - BP control: Continue lisinopril. Add carvedilol 6.25mg bid. - Volume status: Is euvolemic. Agree with lasix due to her RV dysfunction. - RV dysfunction may be due to the fact that Echo was done during acute illlness with pneumonia. Other ddx possibly due to longstanding asthma and untreated TORSTEN. No h/o infarct or shunt. Will get f/u Echo to evalute if RV dilation/dysfunction is persistent. If it is, we discussed that diuretics may be bed bug exterminator for her. - F/u 6 months. Future Tests Future scheduled test information is unavailable Pending Tests Test Name Ordered Date Scheduled Date [facility] echo transthoracic April 11, 2025 11:19am Future Visits Future appointment information is unavailable Referrals to Other Providers Referral information is unavailable Future Procedures Procedure Name Ordered Date Scheduled Date [facility] ECG *CARDIOLOGY ONLY* April 11, 2025 10:22am April 11, 2025 10:22am Future Medications Future medication information is unavailable Patient Instructions Patient instructions are unavailable
--- OUTSIDE RECORDS SUMMARY | 2025-04-22 12:16 | XMS_ITS | Clinical Summary ---
Author Organization [employer] Address [id number] [address] [place] [address] Care Team Providers Care Hot Plate Plywood Press Operator Name Role Phone Jona Parker DO Primary Care Provider [phone] Allergies Active Allergy Reactions Criticality Noted Date Comments Venlafaxine GI Disturbance 03/16/2017 Nalbuphine 10/28/2024 Unknown reaction Nsaids (Non-Steroidal Anti-Inflammatory Drug) Other (See Comments) 03/16/2017 Causes renal failure Ketorolac Other (See Comments) 03/16/2017 Causes renal failure Medications atenolol (TENORMIN) 50 mg tablet Take 50 mg by mouth daily. 0 7 Active tiZANidine (ZANAFLEX) 4 mg tablet Take 4 mg by mouth 3 (three) times a day as needed. 0 7 Active lisinopril-hydr oCHLOROthiazide (PRINZIDE,ZESTO RETIC) 20-25 mg per tablet Take 1 tablet by mouth daily. Active methIMAzole (TAPAZOLE) 5 mg tablet Take 5 mg by mouth daily. Active alendronate (FOSAMAX) 35 mg tablet Take 35 mg by mouth every 7 days. Every monday Active potassium chloride (KLOR-CON M) 10 MEQ CR tablet Take 10 mEq by mouth daily. Active cholecalciferol (VITAMIN D3) 50,000 units capsule Take 50,000 Units by mouth once a week. Active atorvastatin (LIPITOR) 40 mg tablet Take 1 tablet (40 mg total) by mouth nightly. 30 tablet 11 0 Active tiotropium (SPIRIVA) 18 mcg per inhalation capsule Place 1 capsule into inhaler and inhale once daily. Active VENTOLIN HFA 90 mcg/actuation inhaler 4 (four) times a day. Active iron,carbonyl-v itamin C (VITRON-C) 65 mg iron- 125 mg tablet,delayed release (DR/EC) Take 1 tablet by mouth once daily. Active cyanocobalamin (vitamin B-12) 1000 MCG tablet Take 1 tablet (1,000 mcg total) by mouth in the morning. Active alendronate (FOSAMAX) 70 mg tablet Take 1 tablet (70 mg total) by mouth every 7 days. In a.m. with water on empty stomach, nothing else by mouth and remain upright for 30min Active ergocalciferol (DRISDOL) 1,250 mcg (50,000 unit) capsule Take 1 capsule (50,000 Units total) by mouth once a week. Active Active Problems Problem Noted Date Diagnosed Date Class 3 severe obesity due t o excess calories without serious comorbidity in adult 07/01/2021 Essential hypertension 04/16/2020 Non-ST elevated myocardial infarction (non-STEMI ) 04/06/2020 Chest pain 04/30/2018 Immunizations Immunization Administration Dates Next Due COVID-19, mRNA, LNP-S, PF, 100mcg/0.5mL Dose 04/2021,02/02/2021 Family History * Patient is adopted Relation Name Status Comments Father Mother Social History Tobacco Use Types Packs/Day Years Used Date Smoking Tobacco: Some Days Cigarettes 0.1 52.1 Started: 03/16/1973 Smokeless Tobacco: Never Tobacco Cessation:Ready to Q uit: Not Asked; Counseling Given: Not Answered Alcohol Use Standard Drinks/Week Comments No 0 (1 standard drink = 0.6 oz pur e alcohol) Childcare Answer Date Recorded Childcare Unknown 05/02/2019 Employment Answer Date Recorded Employment Unknown 05/02/2019 Purpose - Life Answer Date Recorded Purpose and direction in life Unknown Comments No Sex and Gender Information Value Date Recorded Sex Assigned at Not on file Legal Sex Female 11:25 AM EDT Gender Identity Not on file Sexual Orientation Not on file Last Filed Vital Signs Vital Sign Reading Time Taken Comments Blood Pressure 130/84 07/01/2021 1:03 PM EDT Pulse 71 07/01/2021 1:03 PM EDT Temperature 36.8 C (98.2 F) 04/08/2020 10:58 AM EDT Respiratory Rate 18 04/08/2020 10:58 AM EDT Oxygen Saturation 96% 07/01/2021 1:03 PM EDT Inhaled Oxygen Concentration - - Weight 119.3 kg (263 lb) 08/19/2021 10:45 AM EDT Height 154.9 cm (5' 1 ) 08/19/2021 10:45 AM EDT Body Mass Index 49.69 08/19/2021 10:45 AM EDT Plan of Treatment Health Maintenance Due Date Last Done Comments Tobacco Counseling 1955 Depression Screening 1969 Tobacco Screening 1969 Adult BMI Screening 1975 DTaP,Tdap and Td Vaccines (1 - Tdap) 1976 Zoster (Shingles) Vaccine (1 of 2) 2007 Fall Risk Screening 2022 COVID-19 Vaccine ( season) 07/28/202404/2021, 02/02/2021 Influenza Vaccine 07/28/2025 Goals Goal Patient Goal Type Associated Problems Recent Progress Patient-Stated? Author Discharge General Yes Sarah Epps, RN Note: Evaluation of progress towards goal: Pt requests safe transition home. Medical Devices Implanted Type Area Professor Of Biology Device Identifier Shelf Expiration Date Model / Serial / Lot Swivelock 5.5 - [id number] Implanted:Qty: 1 on 04/04/2017 by Marcus Cowan Jr., DO at [facility] [place] Right: Shoulder Arthrex 08/26/2018 AR-[id number] / / [id number] Swivelock 4.75 - [id number] Implanted:Qty: 1 on 04/04/2017 by Marcus Cowan Jr., DO at [facility] [place] Right: Shoulder Arthrex 10/26/2018 AR-[id number] / / [id number] Insurance AETNA MEDICAID AETNA MEDICARE Advance Directives * Full Code (Latest Code Status on File) Date Activated Date Inactivated Comments 04/06/2020 6:48 PM 04/08/2020 5:10 PM * Full Code Date Activated Date Inactivated Comments 05/01/2018 1:00 AM 05/01/2018 5:30 PM Care Teams Hot Plate Plywood Press Operator Relationship Specialty Start Date End Date Jona Parker DO [address] [place] [id number] PCP - General Family Medicine 04/16/20
--- OUTSIDE RECORDS SUMMARY | 2025-04-22 12:16 | XMS_ITS | Referral Summary ---
Author Organization [facility] Address [address] [place] [address] Care Team Providers Care Sack Department Supervisor Name Role Phone Radhajayme Jona Primary Care Provider [phone] Social History Tobacco Use Types Packs/Day Years Used Date Smoking Tobacco: Never Assessed [place] Safety & Environment Answer Date Rec orded Fear of Current or Ex-Partner Not on file Emotionally Abused Not on file 01/18/2024 Physically Abused Not on file 01/18/2024 Sexually Abused Not on file 01/18/2024 Physically or Sexually Abused Not on file Sex and Gender Information Value Date Recorded Sex Assigned at Not on file Gender Identity Not on file Sexual Orientation Not on file Last Filed Vital Signs Vital Sign Reading Time Taken Comments Blood Pressure 153/74 09/24/2021 11:07 AM EDT Pulse 74 09/24/2021 11:07 AM EDT Temperature - - Respiratory Rate - - Oxygen Saturation - - Inhaled Oxygen Concentration - - Weight 116 kg (256 lb) 09/24/2021 11:03 AM EDT Height 156.2 cm (5' 1.5 ) 09/24/2021 11:03 AM ED T Body Mass Index 47.59 09/24/2021 11:03 AM EDT Plan of Treatment Not on file Care Teams Sack Department Supervisor Relationship Specialty Start Date End Date Jona Parker DO [address] [address] PCP - General 08/05/22
--- OUTSIDE RECORDS SUMMARY | 2025-04-22 12:16 | XMS_ITS | Clinical Summary ---
Author Organization [facility] Healthcare Address [address] [place] [address] Care Team Providers Care Inspector Printed Circuit Boards Name Role Phone Unavailable Primary Care Provider Unavailabl e Social History Tobacco Use Types Packs/Day Years Used Date Smoking Tobacco: Never Assessed Comments Unknown Sex and Gender Information Value Date Recorded Sex Assigned at Not on file Legal Sex Female 6:40 PM EDT Gender Identity Not on file Sexual Orientation Not on file Last Filed Vital Signs Vital Sign Reading Time Taken Comments Blood Pressure - - Pulse - - Temperature - - Respiratory Rate - - Oxygen Saturation - - Inhaled Oxygen Concentration - - Weight 98 kg (216 lb) 05/06/2019 12:00 PM EDT Height 154.9 cm (5' 1 ) 05/06/2019 12:00 PM EDT Body Mass Index 40.81 05/06/2019 12:00 PM EDT Plan of Treatment Health Maintenance Due Date Last Done Comments CT Colonography 1955 Colonoscopy 1955 Colorectal Cancer Screening 1955 FIT-DNA 1957 FIT 1957 FOBT 1955 Sigmoidoscopy 1955 Mammogram 1997 Pneumococcal Vaccine: 65+ Ye ars (2 of 2 - PCV) 08/27/2019 08/27/2018 Influenza Vaccine Completed 08/13/2024, , 08/11/2017 Insurance MEDICARE [employer] MEDICARE ADVANTAGE
--- OUTSIDE RECORDS SUMMARY | 2025-04-22 12:16 | XMS_ITS | Clinical Summary ---
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 Name Role Phone Jona Parker DO Primary Care Provider [phone] Social History Tobacco Use Types Packs/Day Years [...] 09/24/2021 11:03 AM EDT Plan of Treatment Health Maintenance Due Date Last Done Comments CT Colonography 1955 Colonoscopy 1955 Colorectal Cancer Screening 1955 FIT-DNA 1957 FIT 1957 FOBT 1955 Medicare Annual Wellness (AWV) 1955 Sigmoidoscopy 1957 Depression Screening 1969 Adult Tetanus 1979 Mammogram 1997 Zoster Vaccines (1 of 2) 2007 Fall Risk Screening 2022 Pneumococcal Vaccine: 65+ Ye ars (1 of 1 - PCV) 2022 COVID-19 Vaccine (2023-2 5 season) 2024 Influenza Vaccine (Season Ended) 2025 HIB Vaccines Aged Out No longer eligi ble based on patient's age to complete this topic HPV Vaccines Aged Out No longer eligi ble based on patient's age to complete this topic IPV Vaccines Aged Out No longer eligi ble based on patient's age to complete this topic Meningococcal B Vaccine Aged Out No l onger eligible based on patient's age to complete this topic Meningococcal Vaccine Aged Out No dixie milo eligible based on patient's age to complete this topic Rotavirus Vaccines Aged Out No longer eligible based on patient's age to complete this topic Care Teams Die Cutter Operator Relationship Specialty Start Date End Date Jona Parker DO [address] [place] [address] PCP - General 08/05/22
--- OUTSIDE RECORDS SUMMARY | 2025-04-22 12:16 | XMS_ITS | Patient Health Record ---
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 Name Role Phone Jona Parker DO Primary Care Provider Migue Mccarthy Unavailable [phone] Allergies Allergen (clinical drug ingredient) Drug/Non Drug Allergy documented on EMR Reaction Allergy Type Onset Date Status Non-steroidal anti-inflammatory agent (FN) NSAIDs renal failure Drug Allergy Active Reason For Referral No Information Medications Medication SIG (Take, Route, Frequency, Duration) Notes Start Date End Date Status Levalbuterol Tartrate 45 MCG/ACT Inhalation for 16 Days Activ e Lisinopril 20 MG 1 tablet Orally Once a day Active Lasix 20 MG 1 tablet Orally Once a day Active Trelegy Ellipta 200-62.5-25 MCG/ACT 1 puff Inhalation QD for 90 days Rinse after use Active Acetaminophen-Codeine 300-30 MG Oral for 7 Days Not-Taking Combivent Respimat 20-100 MCG/ACT Inhalation for 30 Days Activ e Immunizations Vaccine Route Administration Date Status Comme nts Flu, Fluad (57592) 65 yrs + High Dose Seasonal (4935-8850) Unknown 08/13/2024 Administered Pneumococcal (Pneumovax 23) Unknown 08/27/2018 Administ ered SARS-COV-2 (COVID 19 Moderna - Booster 0.25mL) Unknown 09/20/2021 Administered Social History Tobacco Use: Social History Observation [...] Problem Status W/U Status Risk Notes Problem Uncomplicated moderate persistent asthma (234131666) Moderate persistent asthma, uncomplicated (J45.40) Active confirmed Problem Chronic respiratory failure (85984750) Chronic respiratory failure with hypoxia (J96.11) Active confirmed Problem Long-term current use of inhaled steroid (440613210) half-way (current) use of inhaled steroids (Z79.51) Active confirmed Problem Obstructive sleep apnea syndrome (64283955) TORSTEN (obstructive sleep apnea) (G47.33) Active confirmed Problem Respiratory tract infection (592901276) Recurrent respiratory infection (J98.8) Active confirmed Problem Multiple pulmonary nodules (048070471) Multiple pulmonary nodules (R91.8) Active confirmed Problem Ex-tobacco user (finding) (166030586) History of tobacco abuse (Z87.891) Active confirmed Problem Diastolic dysfunction (3813588) Diastolic dysfunction (I51.89) Active confirmed Vital Signs Heart Rate 99 /min 04/02/2025 RA Activity/Res ting Temperature 96.8 degrees Fahrenheit 04/02/2025 RA A ctivity/Resting Respiratory Rate 18 /min 04/02/2025 RA Activity /Resting Oximetry 95 % 04/02/2025 RA Activity/Res ting Blood pressure diastolic 97 mm Hg 04/02/2025 RA Activity/Resting Height 60 in 04/02/2025 RA Activity/Res ting Blood pressure systolic 166 mm Hg 04/02/2025 RA A ctivity/Resting Weight 216.2 lbs 04/02/2025 RA Activity/Res ting BMI 42.22 kg/m2 04/02/2025 RA Activity/Res ting Procedures Procedure Date Ordered Date Performed Result Body Sit e PFT (48810, 21519, 13785) 12/31/2024 N/A Encounters Encounter Location Date Provider Diagnosis Pulmonary Medicine [address] [address] 12/31/2024 Migue Rizzo Moderate persistent asthma, uncomplicated J45.40 ; Chronic respiratory failure with hypoxia J96.11 ; TORSTEN (obstructive sleep apnea) G47.33 ; Multiple pulmonary nodules R91.8 ; Diastolic dysfunction I51.89 ; History of tobacco abuse Z87.891 ; Encounter for screening for malignant neoplasm of respiratory organs Z12.2 and half-way (current) use of inhaled steroids Z79.51 Pul[facility] [address] [place] [address] 04/02/2025 [facility] Moderate persistent asthma, uncomplicated J45.40 ; Recurrent respiratory infection J98.8 ; Chronic respiratory failure with hypoxia J96.11 ; Multiple pulmonary nodules R91.8 ; TORSTEN (obstructive sleep apnea) G47.33 ; History of tobacco abuse Z87.891 and half-way (current) use of inhaled steroids Z79.51 [facility] [address] [place] [address] 10/10/2024 [facility] [address] [place] [address] 12/26/2024 [facility] [address] [place] [address] 02/06/2025 [facility] [address] [place] [address] 02/27/2025 [facility] Moderate persistent asthma, uncomplicated J45.40 [facility] [address] [place] [address] 03/24/2025 [facility] Assessments Encounter Date Diagnosis (ICD Code) Assessment Notes Treatment Notes Treatment Clinical Notes Section Notes 12/31/2024 Moderate persistent asthma, uncomplicated (ICD-10 - J45.40) The patient for Salmi, she was treated as COPD. However, after her PFT from 07/01/2022, the pattern was most consistent with asthma, not COPD. By that time, she claimed that her symptoms were well-controlled not on any medication. She was off Stiolto and did not want to restart anything. After her last visit on 07/11/2022, she was lost to follow-up until today. She was hospitalized mid-August with pneumonia and was discharged on Breo 200. She states this inhaler was better than Stiolto; given the asthmatic picture, this statement makes sense. However, on examination, she does have diffuse wheezes. Discussed that Breo 200 may not be enough at this current time. Of note, eosinophils on 09/10/2024 were 2.2%/200. As it has been 2-1/2 years since she last had a PFT in her symptoms have changed, I recommend repeating them. Additionally, with her diffuse wheezes, recommended adding a LAMA on top of her Breo - this would equal Trelegy. The plan will be to order PFT. Breo would need to be held 2 days before hand for LABA washout. After she has the PFT, she is to start Trelegy 200 -s amples were given to her. Follow-up in 6 weeks to review PFT results and response to Trelegy. 12/31/2024 Chronic respiratory failure with hypoxia (ICD-10 - J96.11) Patient was discharged on supplemental O2 from hospitalization. She still meets medical necessity as SpO2 was 87% on room air on arrival. She still has supplemental O2 at home, but does not use it because it is a hassle. Patient was strongly encouraged to continue using her supplemental O2. 04/02/2025 Moderate persistent asthma, uncomplicated (ICD-10 - [...] May require biologic therapy (? Dupixent if prednisone-dependen t) 04/02/2025 Recurrent respiratory infection (ICD-10 - J98.8) 2 episodes of pneumonia since end of December, confirmed via CXR per patient (though I don't have those records). Ordering testing to evaluate further (e.g. immunoglobulins, complement alt. tank, S. pneumo Ab). AAT screening was previously done - she has normal genotype MM. 02/27/2025 Moderate persistent asthma, uncomplicated (ICD-10 - J45.40) 04/02/2025 Chronic respiratory failure with hypoxia (ICD-10 - J96.11) SpO2 remains low on arrival @ 87% on room air. Patient was told to use O2 with ambulation last visit - she still qualifies for supplemental O2 now. She was instructed to be compliant with O2 with activity. 12/31/2024 TORSTEN (obstructive sleep apnea) (ICD-10 - G47.33) Patient has mild TORSTEN based on PSG 03/31/2021 with AHI of 6. She is using supplemental O2 and lieu of CPAP. She voices no desire to restart her CPAP even though I explained that supplemental O2 is adequate to treat TORSTEN. 12/31/2024 Multiple pulmonary nodules (ICD-10 - R91.8) There is a history of multiple pulmonary nodules noted on past CT imaging. Most recent LDCT was from 07/28/2023 and showed no change in the size or number of nodules compared to 07/01/2022. She is nearly 6 months overdue for LDCT. Patient voiced agreement to restart LDCT screening. 04/02/2025 Multiple pulmonary nodules (ICD-10 - R91.8) History of pulmonary nodules. Last LDCT 07/28/2023 - no change from 07/01/2022. She needs LDCT done, but waiting until she recovers from presumptive pneumonia - LDCT possibly later in March. 12/31/2024 Diastolic dysfunction (ICD-10 - I51.89) nEchocardiogram during hospitalization August 2024 noted grade 2 diastolic dysfunction. She states she has an appointment with cardiology within the next several weeks. 04/02/2025 TORSTEN (obstructive sleep apnea) (ICD-10 - [...] agreement to restart the LDCT screening program. 12/31/2024 History of tobacco abuse (ICD-10 - Z87.891) 1/2ppd x 48 years, quit 04/2022. Patient has not restarted smoking. She was congratulated on her success. LDCT was due 07/2024; patient voiced agreement to restart the LDCT screening program. 04/02/2025 salvage determiner (current) use of inhaled steroids (ICD-10 - Z79.51) Patient was counseled to rinse & gargle with water after inhaled corticosteroid use. 12/31/2024 Encounter for screening for malignant neoplasm of respiratory organs (ICD-10 - Z12.2) Low-dose CT (LDCT) was recommended for lung cancer screening. The patient meets criteria including age 50-77, a smoking history of at least 20 pack-years, is currently smoking or has ceased smoking within the past 15 years, and has no signs or symptoms of lung cancer. Shared decision making performed with the patient. After LDCT has been completed, will review report and/or imaging and provide appropriate recommendations for the patient, including additional follow up if needed. Patient was counseled on smoking cessation/continued tobacco abstinence. 12/31/2024 half-way (current) use of inhaled steroids (ICD-10 - Z79.51) Patient was counseled to rinse & gargle with water after inhaled corticosteroid use. Plan Of Treatment Pending Test Test Name Order Date ANCA (ANTINEUTROPHIL CYTOPLASMIC AB SCRE EN) 04/02/2025 ASPERGILLUS ABS (FLAVUS,FUMIGATUS, NIGER ) QUAL 04/02/2025 IGA, IMMUNOGLOBULIN (TOTAL) 04/02/2025 IGE, IMMUNOGLOBULIN (TOTAL) 04/02/2025 IGG, IMMUNOGLOBULIN (TOTAL) 04/02/2025 IGG SUBCLASSES (1,2,3 and 4) 04/02/2025 IGM, IMMUNOGLOBULIN (TOTAL) 04/02/2025 COMPLEMENT, ALT PATH, FUNCTION CT Chest Low Dose for Screening* 025 CBC W/AUTO DIFF 04/02/2025 PFT (73572, 76049, 50060) 12/31/2024 STREP PNEUMONIAE ANTIBODY SEROTYPES 05/0 05/2025 Next Appt Details Provider Name:Migue Rizzo, 04/29/2025 11:00:00 AM, [address] [place], [address], Insurance Providers Payer Name Payer Address Payer Phone Subscriber Number Group Number Insured Name Patient Relationship to Insured Coverage Start Date Coverage End Date [employer] MEDICARE [address] ASHA [place]OS [id number] [phone] [id number] Saba Anila Self - patient is the insured AET DUAL SECONDARY MEDICAID ONLY [address] [place] [phone] [phone] [id number] Anila Walter Self - patient is the insured Medical (General) History Medical History History ICD Code Moderate persistent asthma, uncomplicate d J45.40 Chronic respiratory failure with hypoxia J96.11 TORSTEN (obstructive sleep apnea) G47.33 Multiple pulmonary nodules R91.8 Diastolic dysfunction I51.89 History of tobacco abuse Z87.891 Recurrent respiratory infection J98.8 Surgical History Surgery Date(Month/Year) gastric bypass cholecystectomy bilateral knee replacements vein ligation tonsillectomy Neck Surgery hysterectomy Left Leg Surgery-Humerus Right Wrist Surgery Hospitalization History Reason Date(Month/Year) COPD Exacerbation-[facility] 09/10/2024
--- NOTE | 2025-04-22 12:36 | CT_ITS ---
The [address] [address] Patient Name: SOLEDAD ORELLANA MRN: [id number] date: 1955 Sex: F Assigned Patient Location: CARD Current Patient Location: CARD Accession/Order Number: [id number] Exam Date: 04/22/2025 13:13 Report Date: 04/22/2025 13:17 At the request of: JOCELYNN ROSE DO Procedure: CT lung screening low-dose CT Chest low-dose lung screening without contrast TECHNIQUE: Axial imaging with 2-D reconstruction. The CT exam was performed using one or more the following dose reduction techniques: Automated exposure control, adjustment of the MA and/or Kv according to patient size, or use of the iterative reconstruction technique. History: Tobacco dependence COMPARISON: 07/28/2023 THYROID: Unremarkable TRACHEA AND BRONCHI: Patent ESOPHAGUS: Hiatal hernia. A gastric bypass changes. HEART: Within normal limits PERICARDIAL EFFUSION: None CORONARY ARTERY CALCIFICATION: Present MEDIASTINUM: No adenopathy. No pneumoperitoneum. No mediastinal hematoma. PULMONARY ROBERT: No hilar mass or adenopathy is seen. THORACIC AORTA Unremarkable LUNG NODULE None LUNGS: Basilar atelectasis/scarring. Stable tiny lung nodules. PLEURAL EFFUSION: None PNEUMOTHORAX: No pneumothorax seen. CHEST WALL: No abnormality AXILLA:Unremarkable BONY STRUCTURES Intact UPPER ABDOMEN: Images of the upper abdomen are noncontributory. CT/CT lung screening low-dose IMPRESSION: No enlarging or new lung nodules. FINAL ASSESSMENT: Benign Lung-RADS Version 1.0 Assessment Category: 2 REMARKS: Continued annual screening with LDCT in 12 months is recommended. Impression dictated by: Thiago Sanabria M.D. 04/22/2025 1:17 PM Dictation Location: [place] [address] Electronically authenticated by: [id number] Y Date: 04/22/2025 13:17
[2025-04-22 12:54] LABS: Basophils Absolute Auto 0.1 10^3/uL (0.0-0.1); Basophils Percent Auto 0.7 % (0.2-2.0); Eosinophils Absolute Auto 0.2 10^3/uL (0.0-0.7); Eosinophils Percent Auto 1.5 % (0.9-7.0); Hematocrit 42.2 % (36.0-48.0); Hemoglobin 13.4 g/dL (12.0-16.0); Immature Granulocytes Abs Auto 0.03 10^3/uL (0.00-0.03); Immature Granulocytes Pct Auto 0.3 % (0.0-0.5); Lymphocytes Absolute Auto 1.3 10^3/uL (1.2-3.8); Lymphocytes Percent Auto 12.7 % (20.5-60.0); Mean Corpuscular HGB Conc 31.8 g/dL (29.9-35.2); Mean Corpuscular Hemoglobin 29.7 pg (26.7-34.0); Mean Corpuscular Volume 93.6 fL (81.0-99.0); Mean Platelet Volume 11.3 fL (9.5-13.5); Monocytes Absolute Auto 0.6 10^3/uL (0.3-0.8); Monocytes Percent Auto 6.1 % (1.7-12.0); Neutrophils Absolute Auto 7.8 10^3/uL (1.4-6.5); Neutrophils Percent Auto 78.7 % (43.0-75.0); Platelet Count 293 10^3/uL (150-450); Red Blood Count 4.51 10^6/uL (4.20-5.40); Red Cell Distribution Width 14.9 % (11.0-15.0); White Blood Count 9.9 10^3/uL (4.0-11.0)
[2025-04-23 15:08] LABS: IgG, Subclass 1 337 mg/dL (248-810); IgG, Subclass 2 62 mg/dL (130-555); IgG, Subclass 3 13 mg/dL (15-102); IgG, Subclass 4 3 mg/dL (2-96); Immunoglobulin G, Qn, Serum 581 mg/dL (586-1602)
[2025-04-23 20:08] LABS: Anti-MPO Antibodies <0.2 units (0.0-0.9); Anti-PR3 Antibodies <0.2 units (0.0-0.9); Cytoplasmic (C-ANCA) <1:20 titer (Neg:<1:20); Perinuclear (P-ANCA) <1:20 titer (Neg:<1:20)
[2025-04-25 16:09] LABS: Aspergillus flavus Negative (Neg:<1:1); Aspergillus fumigatus Negative (Neg:<1:1); Aspergillus niger Negative (Neg:<1:1)
== END 2025-04-22 12:14 | disposition home or self-care (01) ==
LOC: CARD 12:13
PROVIDERS: PCP Family Medicine; Visit Provider Internal Medicine
DX: J45.40 Moderate persistent asthma, uncomplicated (principal); Z87.891 Personal history of nicotine dependence; Z12.2 Encounter for screening for malignant neoplasm of respiratory organs; J98.8 Other specified respiratory disorders
CPT/HCPCS: 36415; 71271; 82784; 82785; 82787; 83516; 85025; 86037; 86161; 86581; 86606